=== PATIENT | female | born 1990 | race Caucasian/White ===

== ENCOUNTER 2019-03-13 19:21 | Inpatient (IN) | payer OTHER | END 2019-03-17 09:32 | disposition home or self-care (01) | LOC: Y6N 03-14 01:21 → YASAS 19:21 ==

== ENCOUNTER 2019-07-29 09:07 | Inpatient (IN) | payer OTHER ==
[2019-07-29 09:29] VITALS: BMI 24.7
--- NOTE | 2019-07-29 10:03 | HP ---
COWS - Scale Resting Pulse: 1= [place] 81-100 Sweatin= Chills/Flushing Restless Observation: 1= Difficult to Sit Still Pupil Size: 1= Pupils >than Normal Bone or Joint Aches: 2= Severe Diffuse Aches Runny Nose/ Eye Tearin= Runny Nose/Eyes GI Upset > 30mins: 1= Stomach Cramp Tremor Observation: 2= Slight Tremor Visible Yawning Observation: 1= 1-2x During Session Anxiety or Irritability: 1=Feels Anxious/Irritable Goose Flesh Skin: 3=Piloerection COWS Score: 16 CIWA Score - Admission Criteria OASAS Guidelines: Admission for Medically Managed Detox: Requires at least one of the followin. CIWA greater than 12 2. Seizures within the past 24 hours 3. Delirium tremens within the past 24 hours 4. Hallucinations within the past 24 hours 5. Acute intervention needed for co occurring medical disorder 6. Acute intervention needed for co occurring psychiatric disorder 7. Severe withdrawal that cannot be handled at a lower level of care (continued vomiting, continued diarrhea, abnormal vital signs) requiring intravenous medication and/or fluids 8. Admitting History and Physical - Admission Chief Complaint: WITHDRAWAL SYMPTOMS History of Present Illness: 28 Y.O. WOMAN WITH HISTORY OF HEROIN DEPENDENCE IS HERE SEEKING DETOX SERVICES. SHE WAS LAST HERE FOR DETOX ON 02/2019. SHE IS PRESCRIBED SUBOXONE AND MEDICATION WAS LAST REFILLED ON 07/19/19. SHE REPORTS SHE IS NOT TAKING THE MEDICATION; THERE IS NO BUPRENORPHINE IN HER U/A. SHE WAS AT [facility] YESTERDAY FOR POSSIBLE OVERDOSE (DID NOT PROVIDE DISCHARGE PAPERWORK) AND BROUGHT HERE BY A [employer]. 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: Alzheimer's, CVA, Dementia, Migraine, Multiple Sclerosis, Peripheral Neuropathy, Parkinson's, Seizure, Syncope, TIA, Vertigo, Other Cardiovascular: No: AFIB, Aneurysm, Aortic Insufficiency, Aortic Stenosis, CAD, CHF, Deep Vein Thrombosis, HTN, Hyperlipdemia, MA, Mitral Insufficiency, Mitral Stenosis, Murmur, Pulmonary Hypertension, Other Pulmonary: No: Asthma, Bronchitis, Cancer, COPD, O2 Dependent, Pneumonia, Previously Intubated, Pulmonary Embolus, Pulmonary Fibrosis, Sleep Apnea, Other Gastrointestinal: No: Ascites, Cancer, Constipation, Crohn's Disease, Diverticulitis, Diverticulosis, Esophageal Varices, Gastritis, GERD, GI Bleed, Hemorrhoids, Hiatal Hernia, Inflamatory Bowel Disease, Irritable Bowel Disease, Pancreatitis, Peptic Ulcer Disease, Ulcerative Colitis, Other Hepatobiliary: No: Cirrhosis, Cholelithiasis, Cholecystitis, Choledocholithiasis , Hepatitis A, Hepatitis B, Hepatitis C, Other Renal/: No: Renal Failure, Renal Inusuff, BPH, Cancer, Hematuria, Hemodialysis , Neurogenic Bladder, Renal Calculi, UTI, Other Reproductive: No: Ectopic , Endometriosis, Fibroids, PID, Polycystic Ovary Syndrome, Postmenopausal, Other ...LMP: 07/10/19 ...: No ...: 3 ...Para: 3 Heme/Onc: No: Anemia, B12 Deficiency, Bleeding Disorder, Cancer, Current Chemotherapy, Current Radiation Therapy, Hemochromatosis, Hypercoaguable State, Myeloproliferative Synd, Sickle Cell Disease, Sickle Cell Trait, Thrombocytopenia, Other Infectious Disease: No: AIDS, C-Diff, Herpes Zoster, HIV, MRSA, STD's, Tuberculosis, VREF, Other Psych: Yes: Depression Musculoskeletal: Yes: Chronic low back pain Rheumatology: No: Fibromyalgia, Gout, Lupus, Rheumatoid Arthritis, Sarcoidosis, Vasculitis, Other ENT: No: Allergic Rhinitis, Sinusitis, Other Endocrine: No: [place]'s Disease, Dona's Disease, Diabetes Insipidus, Diabetes Mellitus, Hyperparathyroidism, Hyperthyroidism, Hypothyroidism, Osteopenia, SIADH, Other Dermatology: No: Basal Cell, Cellulitis, Eczema, Melanoma, Psoriasis, Squamous Cell, Other Additional Past Medical History: DENIES - Past Surgical History Past Surgical History: Yes: - Advance Directives Advance Directives: No: Living Will, Health Care Proxy, DNR, Organ Donor, Tissue Donor, MOLST - Smoking History Smoking history: Current every day smoker Have you smoked in the past 12 months: Yes Aproximately how many cigarettes per day: 10 - Alcohol/Substance Use Hx Alcohol Use: No History of Substance Use: reports: Heroin Date of Last Use: 07/28/19 - Social History Usual Living Arrangement: Yes: Other (HOMELESS) Do you think of yourself as: Straight/Heterosexual ADL: Independent History of Recent Travel: No Admission [facility] Chief Complaint: WITHDRAWAL SYMPTOMS Allergies/Adverse Reactions: Allergies Allergy/AdvReac Type Severity Reaction Status Date / Time No Known Allergies Allergy Verified 07/29/19 09:17 History of Present Illness: 28 Y.O. WOMAN WITH HISTORY OF HEROIN DEPENDENCE IS HERE SEEKING DETOX SERVICES. SHE WAS LAST HERE FOR DETOX ON 02/2019. SHE IS PRESCRIBED SUBOXONE AND MEDICATION WAS LAST REFILLED ON 07/19/19. SHE REPORTS SHE IS NOT TAKING THE MEDICATION; THERE IS NO BUPRENORPHINE IN HER U/A. SHE WAS AT [facility] YESTERDAY FOR POSSIBLE OVERDOSE (DID NOT PROVIDE DISCHARGE PAPERWORK) AND BROUGHT HERE BY A [employer]. Exam Limitations: No Limitations - Ebola screening Have you traveled outside of the country in the last 21 days: No (N) Have you had contact with anyone from an Ebola affected area: No Do you have a fever: No - Review of Systems Constitutional: Chills, Loss of Appetite, Unintentional Wgt. Loss EENT: reports: Blurred Vision, Tearing, Nose Congestion Respiratory: reports: No Symptoms reported Cardiac: reports: Lightheadedness, Syncope GI: reports: Abdominal cramping : reports: No Symptoms Reported Musculoskeletal: reports: Back Pain, Joint Pain Integumentary: reports: No Symptoms Reported Neuro: reports: No Symptoms reported Endocrine: reports: No Symptoms Reported Hematology: reports: No Symptoms Reported Psychiatric: reports: Anxious, Depressed Other Systems: Reviewed and Negative Patient History - Patient Medical History Hx Anemia: No Hx Asthma: No Hx Chronic Obstructive Pulmonary Disease (COPD): No Hx Cancer: No Hx Cardiac Disorders: No Hx Congestive Heart Failure: No Hx Hypertension: No Hx Hypercholesterolemia: No Hx Pacemaker: No HX Cerebrovascular Accident: No Hx Seizures: No Hx Dementia: No Hx Diabetes: No Hx Gastrointestinal Disorders: No Hx Liver Disease: No Hx Genitourinary Disorders: No Hx Sexually Transmitted Disorders: No Hx Renal Disease (ESRD): No Hx Thyroid Disease: No Hx Human Immunodeficiency Virus (HIV): No Hx Hepatitis C: No Hx Depression: Yes Hx Suicide Attempt: No Hx Bipolar Disorder: No Hx Schizophrenia: No - Patient Surgical History Hx Section: Yes (2013) - PPD History Previous Implant?: Yes Documented Results: Negative w/proof Implanted On Prior [facility] Admission?: Yes Date: 03/16/19 Results: 0 PPD to be Administered?: No - Reproductive History Patient is a Female of Child Bearing Age (11 -55 yrs old): Yes Last Menstrual Period: 07/10/19 Patient : No - Smoking Cessation Smoking history: Current every day smoker Have you smoked in the past 12 months: Yes Aproximately how many cigarettes per day: 10 Hx Chewing Tobacco Use: No Initiated information on smoking cessation: Yes 'Breaking Loose' booklet given: 07/29/19 - Substance & Tx. History Hx Alcohol Use: No Hx Substance Use: Yes Substance Use Type: Heroin Hx Substance Use Treatment: Yes (02/2019: DETOX ) - Substances abused Heroin Substance route: Injection Frequency: Daily Amount used: 1 bundle Age of first use: 26 Date of last use: 07/28/19 Cocaine Substance route: Injection Frequency: Daily Amount used: $50 Date of last use: 07/28/19 Admission Physical Exam [facility] - Vital Signs Vital Signs: Vital Signs - 24 hr 07/29/19 09:21 Temperature 97.9 F Pulse Rate 83 Respiratory 16 Rate Blood Pressure 122/84 - Physical General Appearance: Yes: Tremorous, Anxious HEENTM: Yes: Hearing grossly Normal, Normal ENT Inspection Respiratory: Yes: Chest Non-Tender, Lungs Clear, Normal Breath Sounds, No Respiratory Distress, No Accessory Muscle Use Neck: Yes: Within Normal Limits Breast: Yes: Breast Exam Deferred Cardiology: Yes: Regular Rhythm, Regular Rate Abdominal: Yes: Normal Bowel Sounds, Non Tender Genitourinary: Yes: Other (NO COMPLAINTS REPORTED) Back: Yes: Normal Inspection Musculoskeletal: Yes: Back pain Extremities: Yes: Normal Inspection, Non-Tender Neurological: Yes: Alert, Normal Mood/Affect, Normal Response Integumentary: Yes: Normal Color, Dry, Warm, Track Nicole Lymphatic: Yes: Within Normal Limits - Diagnostic (1) Nicotine dependence Current Visit: Yes Status: Chronic (2) Opioid dependence with withdrawal Current Visit: Yes Status: Chronic Comment: IVDU (3) Cocaine abuse, uncomplicated Current Visit: Yes Status: Chronic Cleared for Admission [facility] - Detox or Rehab [facility] Level of Care: Medically Managed Detox Regimen/Protocol: Methadone Claeared for Rehab Admission: No Breathalyzer - Breathalyzer Breathalyzer: 0 Urine Drug Screen - Test Device Lot number: [id number] Expiration date: 03/23/21 - Control Is test valid?: Yes - Results Drug screen NEGATIVE: No Urine drug screen results: THC-Marijuana, MAR-Cocaine, FEN-Fentanyl, MOP-Opiates , BAR-Barbiturates Inpatient Rehab Admission - Rehab Decision to Admit Inpatient rehab admission?: No
[2019-07-29] MEDS ORDERED: MELATONIN 5 MG TABLETS PO PRN (10:17)
[2019-07-29] MEDS ORDERED: IBUPROFEN 400 MG TABLET (FP) PO PRN (10:17)
[2019-07-29] MEDS ORDERED: BISMUTH SUBSALICYLATE 524 MG/30 ML UD PO PRN (10:17)
[2019-07-29] MEDS ORDERED: MENTHOL/PHENOL 1 EACH UD MM PRN (10:17)
[2019-07-29] MEDS ORDERED: MAGNESIUM CITRATE 300 ML BOTTLE PO PRN (10:17)
[2019-07-29] MEDS ORDERED: METHADONE HCL 10 MG TABLET (FOR DETOX USE ONLY) PO ONE (10:17)
[2019-07-29] MEDS ORDERED: hydrOXYzine PAMOATE 25 MG CAPSULE (FP) PO PRN (10:17)
[2019-07-29] MEDS ORDERED: MAG HYDROX/AL HYDROX/SIMETH 30 ML UNIT-DOSE CUP PO PRN (10:17)
[2019-07-29] MEDS ORDERED: MAGNESIUM HYDROX 2400MG/30ML ORAL SUSPENSION 30 ML CUP PO PRN (10:17)
[2019-07-29] MEDS ORDERED: NALOXONE HCL 0.4 MG/ML VIAL IM PRN (10:17)
[2019-07-29] MEDS ORDERED: ACETAMINOPHEN 325 MG TABLET (FP) PO PRN ×2 (10:17)
[2019-07-29] MEDS ORDERED: NICOTINE POLACRILEX 2 MG GUM BUC PRN (10:17)
[2019-07-29] MEDS: METHOCARBAMOL 500 MG TABLET PO PRN (19:53)
[2019-07-29] MEDS: cloNIDine HCL 0.1 MG TABLET PO PRN (19:53)
[2019-07-29] MEDS: clonazePAM 0.5 MG TABLET PO PRN (19:53)
[2019-07-29] MEDS: THIAMINE HCL 100 MG TABLET (FP) PO SCH (23:39)
[2019-07-30] MEDS ORDERED: METHADONE HCL 10 MG TABLET (FOR DETOX USE ONLY) ONE (09:19)
[2019-07-30] MEDS ORDERED: METHADONE HCL 5 MG TABLET (FOR DETOX USE ONLY) ONE (09:20)
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
[2019-07-30] MEDS ORDERED: METHADONE (DETOX) 20 MG, METHADONE (DETOX) 5 MG PO ONE (10:00)
--- NOTE | 2019-07-30 10:05 | PN ---
BHS COWS - Scale Resting Pulse: 1= [place] 81-100 Sweatin=Flushed/Facial Moisture Restless Observation: 1= Difficult to Sit Still Pupil Size: 0= Normal to Room Light Bone or Joint Aches: 2= Severe Diffuse Aches Runny Nose/ Eye Tearin= Runny Nose/Eyes GI Upset > 30mins: 1= Stomach Cramp Tremor Observation of Outstretched Hands: 2= Slight Tremor Visible Yawning Observation: 1= 1-2x During Session Anxiety or Irritability: 1=Feels Anxious/Irritable Goose Flesh Skin: 0=Smooth Skin COWS Score: 13 BHS Progress Note (SOAP) Subjective: sweats shakes interrupted sleep body aches restless agitation anxiety Objective: 07/30/19 10:04 Vital Signs Temperature 97.9 F 07/30/19 09:15 Pulse Rate 88 07/30/19 09:15 Respiratory Rate 18 07/30/19 09:15 Blood Pressure 134/75 07/30/19 09:15 O2 Sat by Pulse Oximetry (%) pending labs aaox3 ambulating no acute distress Assessment: 07/30/19 10:14 withdrawals Plan: continue detox increase fluids pending labs
[2019-07-30] MEDS: NICOTINE 14 MG/24 HOURS TOPICAL PATCH TD SCH (10:06)
[2019-07-30] MEDS: PRENATAL VITAMINS W/ FOLIC ACID TABLET (FP) PO SCH (10:06)
[2019-07-30] MEDS: hydrOXYzine PAMOATE 50 MG CAPSULE (FP) PO PRN ×2 (10:42→16:54)
[2019-07-30 11:25] LABS: ALBUMIN 3.5 g/dl (3.4-5.0); BILIRUBIN,TOTAL 0.2 mg/dL (0.2-1); BLOOD UREA NITROGEN 7.3 mg/dL (7-18); CALCIUM 9.4 mg/dL (8.5-10.1); CREATININE 0.7 mg/dL (0.55-1.3); POTASSIUM 4.2 mmol/L (3.5-5.1); TOT PROT 7.6 g/dl (6.4-8.2)
[2019-07-30 11:31] LABS: HEMATOCRIT 37.1 % (32.4-45.2); HEMOGLOBIN 11.9 GM/dL (10.7-15.3); MCH 24.1 pg (25.7-33.7); MEAN CELL VOLUME 75.3 fl (80-96); MEAN PLT VOLUME 8.8 fl (7.5-11.1); PLATELET COUNT 314 K/MM3 (134-434); RBC 4.93 M/mm3 (3.60-5.2); WHITE BLOOD COUNT 7.7 K/mm3 (4.0-10.0)
[2019-07-30] MEDS: clonazePAM 0.5 MG TABLET PO PRN (21:51)
[2019-07-30] MEDS: THIAMINE HCL 100 MG TABLET (FP) PO SCH (21:51)
[2019-07-30] MEDS: cloNIDine HCL 0.1 MG TABLET PO PRN (21:51)
[2019-07-30] MEDS: METHOCARBAMOL 500 MG TABLET PO PRN (21:51)
[2019-07-30] MEDS: MELATONIN 5 MG TABLETS PO PRN (21:54)
[2019-07-31] MEDS: hydrOXYzine PAMOATE 50 MG CAPSULE (FP) PO PRN ×4 (04:55→22:14)
[2019-07-31] MEDS ORDERED: METHADONE HCL 10 MG TABLET (FOR DETOX USE ONLY) PO ONE (10:00)
[2019-07-31] MEDS: METHOCARBAMOL 500 MG TABLET PO PRN ×2 (10:09→22:12)
[2019-07-31] MEDS: NICOTINE 14 MG/24 HOURS TOPICAL PATCH TD SCH (10:09)
[2019-07-31] MEDS: PRENATAL VITAMINS W/ FOLIC ACID TABLET (FP) PO SCH (10:09)
--- NOTE | 2019-07-31 14:06 | PN ---
BHS COWS - Scale Resting Pulse: 1= [place] 81-100 Sweatin= Chills/Flushing Restless Observation: 1= Difficult to Sit Still Pupil Size: 0= Normal to Room Light Bone or Joint Aches: 2= Severe Diffuse Aches Runny Nose/ Eye Tearin= Nasal Congestion GI Upset > 30mins: 0= None Tremor Observation of Outstretched Hands: 1= Tremor [place], Not Seen Yawning Observation: 1= 1-2x During Session Anxiety or Irritability: 2=Irritable/Anxious Goose Flesh Skin: 0=Smooth Skin COWS Score: 10 BHS Progress Note (SOAP) Subjective: body aches sweats shakes irritable agitation Objective: 07/31/19 14:06 Vital Signs Temperature 97.7 F 07/31/19 09:01 Pulse Rate 87 07/31/19 09:01 Respiratory Rate 16 07/31/19 09:01 Blood Pressure 131/97 07/31/19 09:01 O2 Sat by Pulse Oximetry (%) Laboratory Tests 07/29/19 07/30/19 07/30/19 09:48 07:45 07:45 WBC 7.7 RBC 4.93 Hgb 11.9 Hct 37.1 MCV 75.3 L MCH 24.1 L MCHC 32.0 RDW 16.0 H Plt Count 314 MPV 8.8 Sodium 140 Potassium 4.2 Chloride 105 Carbon Dioxide 26 Anion Gap 8 BUN 7.3 Creatinine 0.7 Est GFR (CKD-EPI)AfAm 135.70 Est GFR (CKD-EPI)NonAf 117.08 Random Glucose 127 H Calcium 9.4 Total Bilirubin 0.2 AST 11 L ALT 17 Alkaline Phosphatase 85 Total Protein 7.6 Albumin 3.5 POC Urine HCG, Qual Negative RPR Titer 07/30/19 07:45 WBC RBC Hgb Hct MCV MCH MCHC RDW Plt Count MPV Sodium Potassium Chloride Carbon Dioxide Anion Gap BUN Creatinine Est GFR (CKD-EPI)AfAm Est GFR (CKD-EPI)NonAf Random Glucose Calcium Total Bilirubin AST ALT Alkaline Phosphatase Total Protein Albumin POC Urine HCG, Qual RPR Titer Nonreactive labs noted aaox3 ambulating no acute distress Assessment: 07/31/19 14:06 withdrawals Plan: continue detox increase fluids
[2019-07-31] MEDS: clonazePAM 0.5 MG TABLET PO PRN (16:54)
[2019-07-31] MEDS: THIAMINE HCL 100 MG TABLET (FP) PO SCH (22:12)
[2019-07-31] MEDS: cloNIDine HCL 0.1 MG TABLET PO PRN (22:12)
[2019-07-31] MEDS: MELATONIN 5 MG TABLETS PO PRN (22:13)
[2019-08-01] MEDS: traZODone HCL 50 MG TABLET (FP) PO PRN ×2 (00:51→21:28)
[2019-08-01] MEDS: clonazePAM 0.5 MG TABLET PO PRN (07:04)
[2019-08-01] MEDS: METHOCARBAMOL 500 MG TABLET PO PRN ×2 (07:04→21:29)
[2019-08-01] MEDS: hydrOXYzine PAMOATE 50 MG CAPSULE (FP) PO PRN ×2 (07:05→11:57)
[2019-08-01] MEDS ORDERED: METHADONE HCL 5 MG TABLET (FOR DETOX USE ONLY) ONE (09:12)
[2019-08-01] MEDS ORDERED: METHADONE HCL 10 MG TABLET (FOR DETOX USE ONLY) ONE (09:12)
[2019-08-01] MEDS ORDERED: METHADONE (DETOX) 10 MG, METHADONE (DETOX) 5 MG PO ONE (10:00)
[2019-08-01] MEDS: PRENATAL VITAMINS W/ FOLIC ACID TABLET (FP) PO SCH (10:43)
[2019-08-01] MEDS: NICOTINE 14 MG/24 HOURS TOPICAL PATCH TD SCH (10:44)
[2019-08-01] MEDS: diazePAM 5 MG TABLET PO PRN ×3 (10:45→21:28)
--- NOTE | 2019-08-01 14:28 | PN ---
BHS COWS - Scale Resting Pulse: 1= [place] 81-100 Sweatin= Chills/Flushing Restless Observation: 1= Difficult to Sit Still Pupil Size: 0= Normal to Room Light Bone or Joint Aches: 2= Severe Diffuse Aches Runny Nose/ Eye Tearin= None GI Upset > 30mins: 0= None Tremor Observation of Outstretched Hands: 1= Tremor [place], Not Seen Yawning Observation: 1= 1-2x During Session Anxiety or Irritability: 1=Feels Anxious/Irritable Goose Flesh Skin: 0=Smooth Skin COWS Score: 8 BHS Progress Note (SOAP) Subjective: sweats shakes body aches anxiety Objective: 08/01/19 14:27 Vital Signs Temperature 97.9 F 08/01/19 13:05 Pulse Rate 76 08/01/19 13:05 Respiratory Rate 18 08/01/19 13:05 Blood Pressure 132/81 08/01/19 13:05 O2 Sat by Pulse Oximetry (%) Laboratory Tests 07/29/19 07/30/19 07/30/19 09:48 07:45 07:45 WBC 7.7 RBC 4.93 Hgb 11.9 Hct 37.1 MCV 75.3 L MCH 24.1 L MCHC 32.0 RDW 16.0 H Plt Count 314 MPV 8.8 Sodium 140 Potassium 4.2 Chloride 105 Carbon Dioxide 26 Anion Gap 8 BUN 7.3 Creatinine 0.7 Est GFR (CKD-EPI)AfAm 135.70 Est GFR (CKD-EPI)NonAf 117.08 Random Glucose 127 H Calcium 9.4 Total Bilirubin 0.2 AST 11 L ALT 17 Alkaline Phosphatase 85 Total Protein 7.6 Albumin 3.5 POC Urine HCG, Qual Negative RPR Titer 07/30/19 07:45 WBC RBC Hgb Hct MCV MCH MCHC RDW Plt Count MPV Sodium Potassium Chloride Carbon Dioxide Anion Gap BUN Creatinine Est GFR (CKD-EPI)AfAm Est GFR (CKD-EPI)NonAf Random Glucose Calcium Total Bilirubin AST ALT Alkaline Phosphatase Total Protein Albumin POC Urine HCG, Qual RPR Titer Nonreactive labs noted aaox3 ambulating no acute distress Assessment: 08/01/19 14:27 withdrawals Plan: continue detox valium 10mg prn increase fluids
[2019-08-01] MEDS: MELATONIN 5 MG TABLETS PO PRN (21:27)
[2019-08-01] MEDS: THIAMINE HCL 100 MG TABLET (FP) PO SCH (21:27)
[2019-08-02] MEDS: METHOCARBAMOL 500 MG TABLET PO PRN ×3 (03:58→17:38)
[2019-08-02] MEDS: diazePAM 5 MG TABLET PO PRN ×4 (03:58→22:17)
[2019-08-02] MEDS: PRENATAL VITAMINS W/ FOLIC ACID TABLET (FP) PO SCH (09:45)
[2019-08-02] MEDS: hydrOXYzine PAMOATE 50 MG CAPSULE (FP) PO PRN ×2 (09:45→15:54)
[2019-08-02] MEDS ORDERED: METHADONE HCL 10 MG TABLET (FOR DETOX USE ONLY) PO ONE (10:00)
[2019-08-02] MEDS: NICOTINE 14 MG/24 HOURS TOPICAL PATCH TD SCH (10:19)
--- NOTE | 2019-08-02 13:29 | PN ---
BHS COWS - Scale Resting Pulse: 1= [place] 81-100 Sweatin= Chills/Flushing Restless Observation: 1= Difficult to Sit Still Pupil Size: 0= Normal to Room Light Bone or Joint Aches: 1= Mild Discomfort Runny Nose/ Eye Tearin= None GI Upset > 30mins: 0= None Tremor Observation of Outstretched Hands: 1= Tremor [place], Not Seen Yawning Observation: 0= None Anxiety or Irritability: 1=Feels Anxious/Irritable Goose Flesh Skin: 0=Smooth Skin COWS Score: 6 BHS Progress Note (SOAP) Subjective: feeling much better sweats little anxiety Objective: 08/02/19 13:28 Vital Signs Temperature 97.9 F 08/02/19 09:57 Pulse Rate 91 H 08/02/19 09:57 Respiratory Rate 16 08/02/19 09:57 Blood Pressure 129/82 08/02/19 09:57 O2 Sat by Pulse Oximetry (%) aaox3 ambulating no acute distress Assessment: 08/02/19 13:29 mild withdrawal Plan: continue detox d/c in am
[2019-08-02] MEDS: THIAMINE HCL 100 MG TABLET (FP) PO SCH (22:17)
[2019-08-02] MEDS: traZODone HCL 50 MG TABLET (FP) PO PRN (22:17)
[2019-08-02] MEDS: MELATONIN 5 MG TABLETS PO PRN (22:19)
[2019-08-03] MEDS: METHOCARBAMOL 500 MG TABLET PO PRN (05:58)
[2019-08-03] MEDS: diazePAM 5 MG TABLET PO PRN (05:59)
[2019-08-03] MEDS ORDERED: METHADONE HCL 5 MG TABLET (FOR DETOX USE ONLY) PO ONE (06:00)
[2019-08-03 09:41] VITALS: BP 122/52; PULSE 107; TEMP 98.1
--- NOTE | 2019-08-03 09:42 | DS ---
[facility] Detox Discharge Summary Admission Date: 07/29/19 Discharge Date: 08/03/19 - History Present History: Cannabis Dependence, Cocaine Dependence, Opioid Dependence - Physical Exam Results Vital Signs: Vital Signs Temperature 97.5 F L 08/03/19 06:00 Pulse Rate 87 08/03/19 06:00 Respiratory Rate 16 08/03/19 06:00 Blood Pressure 110/70 08/03/19 06:00 O2 Sat by Pulse Oximetry (%) Pertinent Admission Physical Exam Findings: pt arrived in withdrawals Vital Signs Temperature 97.5 F L 08/03/19 06:00 Pulse Rate 87 08/03/19 06:00 Respiratory Rate 16 08/03/19 06:00 Blood Pressure 110/70 08/03/19 06:00 O2 Sat by Pulse Oximetry (%) Laboratory Tests 07/29/19 07/30/19 07/30/19 09:48 07:45 07:45 WBC 7.7 RBC 4.93 Hgb 11.9 Hct 37.1 MCV 75.3 L MCH 24.1 L MCHC 32.0 RDW 16.0 H Plt Count 314 MPV 8.8 Sodium 140 Potassium 4.2 Chloride 105 Carbon Dioxide 26 Anion Gap 8 BUN 7.3 Creatinine 0.7 Est GFR (CKD-EPI)AfAm 135.70 Est GFR (CKD-EPI)NonAf 117.08 Random Glucose 127 H Calcium 9.4 Total Bilirubin 0.2 AST 11 L ALT 17 Alkaline Phosphatase 85 Total Protein 7.6 Albumin 3.5 POC Urine HCG, Qual Negative RPR Titer 07/30/19 07:45 WBC RBC Hgb Hct MCV MCH MCHC RDW Plt Count MPV Sodium Potassium Chloride Carbon Dioxide Anion Gap BUN Creatinine Est GFR (CKD-EPI)AfAm Est GFR (CKD-EPI)NonAf Random Glucose Calcium Total Bilirubin AST ALT Alkaline Phosphatase Total Protein Albumin POC Urine HCG, Qual RPR Titer Nonreactive pt is feeling much better aaox3 ambulating no acute distress no s/s of withdrawals - Treatment Hospital Course: Detox Protocol Followed, Detoxed Safely, Responded well, Discharged Condition Good, Rehab Referral Accepted Patient has Accepted a Rehab Referral to: pt referred to [facility] inpatient rehab - Medication Discharge Medications: Ambulatory Orders traZODone HCL [Trazodone HCl] 50 mg PO HS 07/29/19 - Diagnosis (1) Cocaine dependence Current Visit: Yes Status: Chronic Qualifiers: Substance use status: uncomplicated Qualified Code(s): F14.20 - Cocaine dependence, uncomplicated (2) Opioid dependence with withdrawal Current Visit: Yes Status: Chronic (3) Substance induced mood disorder Current Visit: Yes Status: Acute (4) Substance-induced sleep disorder Current Visit: Yes Status: Acute (5) Low back pain Current Visit: Yes Status: Chronic (6) Nicotine dependence Current Visit: Yes Status: Chronic Qualifiers: Nicotine product type: cigarettes Substance use status: uncomplicated Qualified Code(s): F17.210 - Nicotine dependence, cigarettes, uncomplicated (7) Cannabis abuse, uncomplicated Current Visit: Yes Status: Chronic - AMA Did Patient Leave Against Medical Advice: No
[2019-08-03] MEDS: NICOTINE 14 MG/24 HOURS TOPICAL PATCH TD SCH (10:29)
[2019-08-03] MEDS: PRENATAL VITAMINS W/ FOLIC ACID TABLET (FP) PO SCH (10:29)
[2019-08-03] MEDS: hydrOXYzine PAMOATE 50 MG CAPSULE (FP) PO PRN (10:30)
== END 2019-08-03 12:28 | disposition home or self-care (01) | DRG 773 ==
LOC: YASAS 09:07 → Y6N 10:26
PROVIDERS: ADMIT Allergy & Immunology; ATTEND Allergy & Immunology
PROC: HZ2ZZZZ Detoxification Services for Substance Abuse Treatment (ICD-10-PCS; principal; 2019-07-29)
DX: F11.23 Opioid dependence with withdrawal (principal); F14.20 Cocaine dependence, uncomplicated; F12.20 Cannabis dependence, uncomplicated; F17.210 Nicotine dependence, cigarettes, uncomplicated; F19.282 Other psychoactive substance dependence with psychoactive substance-induced sleep disorder; F19.24 Other psychoactive substance dependence with psychoactive substance-induced mood disorder; F32.9 Major depressive disorder, single episode, unspecified; M54.5 Low back pain
CPT/HCPCS: 36415; 80053; 81025; 85027; 86593; J0735

== ENCOUNTER 2021-03-04 14:46 | Inpatient (IN) | payer OTHER ==
[2021-03-04 16:12] VITALS: BMI 25.7
[2021-03-04] MEDS ORDERED: ACETAMINOPHEN 325 MG TABLET (FP) PO PRN ×2 (20:35)
[2021-03-04] MEDS ORDERED: MAG HYDROX/AL HYDROX/SIMETH 30 ML UNIT-DOSE CUP PO PRN (20:35)
[2021-03-04] MEDS ORDERED: BISMUTH SUBSALICYLATE 524 MG/30 ML UD PO PRN (20:35)
[2021-03-04] MEDS ORDERED: MAGNESIUM CITRATE 300 ML BOTTLE PO PRN (20:35)
[2021-03-04] MEDS ORDERED: ONDANSETRON *ODT* 4 MG TABLET SL PRN (20:35)
[2021-03-04] MEDS ORDERED: MENTHOL/PHENOL 1 EACH UD MM PRN (20:35)
[2021-03-04] MEDS ORDERED: NICOTINE POLACRILEX 2 MG GUM BUC PRN (20:35)
[2021-03-04] MEDS ORDERED: MAGNESIUM HYDROX 2400MG/30ML ORAL SUSPENSION 30 ML CUP PO PRN (20:35)
[2021-03-04] MEDS ORDERED: METHADONE HCL 10 MG TABLET (FOR DETOX USE ONLY) PO ONE ×2 (20:35→23:30)
[2021-03-04] MEDS: METHOCARBAMOL 500 MG TABLET PO PRN (23:34)
[2021-03-04] MEDS: THIAMINE HCL 100 MG TABLET (FP) PO SCH (23:34)
[2021-03-04] MEDS: MELATONIN 5 MG TABLETS PO SCH (23:34)
[2021-03-05] MEDS ORDERED: METHADONE HCL 5 MG TABLET (FOR DETOX USE ONLY) ONE (09:40)
[2021-03-05] MEDS ORDERED: METHADONE HCL 10 MG TABLET (FOR DETOX USE ONLY) ONE (09:40)
[2021-03-05] MEDS ORDERED: METHADONE (DETOX) 20 MG, METHADONE (DETOX) 5 MG PO ONE (10:00)
[2021-03-05] MEDS: PRENATAL VITAMINS W/ FOLIC ACID TABLET (FP) PO SCH (10:30)
[2021-03-05] MEDS: NICOTINE 14 MG/24 HOURS TOPICAL PATCH TD SCH (10:32)
[2021-03-05] MEDS: METHOCARBAMOL 500 MG TABLET PO PRN ×2 (10:32→18:13)
[2021-03-05] MEDS: IBUPROFEN 400 MG TABLET (FP) PO PRN (10:32)
[2021-03-05 10:37] LABS: HEMATOCRIT 40.8 % (32.4-45.2); HEMOGLOBIN 13.7 GM/dL (10.7-15.3); MCH 27.4 pg (25.7-33.7); MCHC 33.7 g/dl (32.0-36.0); MEAN CELL VOLUME 81.2 fl (80-96); MEAN PLT VOLUME 8.9 fl (7.5-11.1); PLATELET COUNT 231 K/MM3 (134-434); RBC 5.02 M/mm3 (3.60-5.2); RDW 12.9 % (11.6-15.6); WHITE BLOOD COUNT 7.1 K/mm3 (4.0-10.0)
[2021-03-05 10:43] LABS: CALCIUM 9.4 mg/dL (8.5-10.1)
[2021-03-05 10:44] LABS: ALBUMIN 3.7 g/dl (3.4-5.0); BLOOD UREA NITROGEN 10.1 mg/dL (7-18)
[2021-03-05 10:47] LABS: CREATININE 0.7 mg/dL (0.55-1.3)
[2021-03-05 10:48] LABS: BILIRUBIN,TOTAL 0.3 mg/dL (0.2-1); TOT PROT 7.9 g/dl (6.4-8.2)
[2021-03-05] MEDS: cloNIDine HCL 0.1 MG TABLET PO PRN (18:13)
[2021-03-05] MEDS ORDERED: hydrOXYzine PAMOATE 50 MG CAPSULE (FP) PO ONE (20:30)
[2021-03-05] MEDS: traZODone HCL 50 MG TABLET (FP) PO SCH ×2 (23:21→23:27)
[2021-03-05] MEDS: MELATONIN 5 MG TABLETS PO SCH (23:22)
[2021-03-05] MEDS: THIAMINE HCL 100 MG TABLET (FP) PO SCH (23:22)
[2021-03-06] MEDS: cloNIDine HCL 0.1 MG TABLET PO PRN (06:05)
[2021-03-06] MEDS: METHOCARBAMOL 500 MG TABLET PO PRN ×2 (06:05→17:44)
[2021-03-06] MEDS ORDERED: METHADONE HCL 10 MG TABLET (FOR DETOX USE ONLY) PO ONE (10:00)
[2021-03-06] MEDS: PRENATAL VITAMINS W/ FOLIC ACID TABLET (FP) PO SCH (10:08)
[2021-03-06] MEDS: NICOTINE 14 MG/24 HOURS TOPICAL PATCH TD SCH (10:09)
[2021-03-06] MEDS: hydrOXYzine PAMOATE 50 MG CAPSULE (FP) PO PRN (17:44)
[2021-03-06] MEDS: THIAMINE HCL 100 MG TABLET (FP) PO SCH (22:08)
[2021-03-06] MEDS: traZODone HCL 50 MG TABLET (FP) PO SCH (22:08)
[2021-03-06] MEDS: MELATONIN 5 MG TABLETS PO SCH (22:08)
[2021-03-07] MEDS: METHOCARBAMOL 500 MG TABLET PO PRN ×3 (05:34→17:38)
[2021-03-07] MEDS: hydrOXYzine PAMOATE 50 MG CAPSULE (FP) PO PRN ×3 (05:34→17:39)
[2021-03-07] MEDS ORDERED: METHADONE HCL 5 MG TABLET (FOR DETOX USE ONLY) ONE (09:35)
[2021-03-07] MEDS ORDERED: METHADONE HCL 10 MG TABLET (FOR DETOX USE ONLY) ONE (09:36)
[2021-03-07] MEDS: PRENATAL VITAMINS W/ FOLIC ACID TABLET (FP) PO SCH (09:40)
[2021-03-07] MEDS: NICOTINE 14 MG/24 HOURS TOPICAL PATCH TD SCH (09:43)
[2021-03-07] MEDS ORDERED: METHADONE (DETOX) 10 MG, METHADONE (DETOX) 5 MG PO ONE (10:00)
[2021-03-07 14:09] LABS: SARS-CoV-2 NAA Not Detected (Not Detected)
[2021-03-07] MEDS: IBUPROFEN 400 MG TABLET (FP) PO PRN (15:51)
[2021-03-07] MEDS: traZODone HCL 50 MG TABLET (FP) PO SCH (21:57)
[2021-03-07] MEDS: THIAMINE HCL 100 MG TABLET (FP) PO SCH (21:57)
[2021-03-08] MEDS: MELATONIN 5 MG TABLETS PO SCH ×2 (00:22→22:35)
[2021-03-08] MEDS: hydrOXYzine PAMOATE 50 MG CAPSULE (FP) PO PRN (03:37)
[2021-03-08] MEDS: METHOCARBAMOL 500 MG TABLET PO PRN ×4 (03:55→22:36)
[2021-03-08] MEDS: NICOTINE 14 MG/24 HOURS TOPICAL PATCH TD SCH (10:00)
[2021-03-08] MEDS ORDERED: METHADONE HCL 10 MG TABLET (FOR DETOX USE ONLY) PO ONE (10:00)
[2021-03-08] MEDS: PRENATAL VITAMINS W/ FOLIC ACID TABLET (FP) PO SCH (10:00)
[2021-03-08] MEDS: hydrOXYzine PAMOATE 50 MG CAPSULE (FP) PO SCH ×3 (10:01→22:35)
[2021-03-08] MEDS: THIAMINE HCL 100 MG TABLET (FP) PO SCH (22:34)
[2021-03-08] MEDS: traZODone HCL 50 MG TABLET (FP) PO SCH (22:35)
[2021-03-09] MEDS ORDERED: METHADONE HCL 5 MG TABLET (FOR DETOX USE ONLY) PO ONE (06:00)
[2021-03-09] MEDS: hydrOXYzine PAMOATE 50 MG CAPSULE (FP) PO SCH (06:08)
[2021-03-09 08:32] VITALS: BP 123/67; PULSE 88; TEMP 97.8
== END 2021-03-09 10:34 | disposition other institution (70) | DRG 773 ==
LOC: YASAS 14:46 → UNDOADMIN 16:58 → Y3N 16:58 → Y6N 20:37
PROVIDERS: ADMIT Allergy & Immunology; ATTEND Allergy & Immunology
PROC: HZ2ZZZZ Detoxification Services for Substance Abuse Treatment (ICD-10-PCS; principal; 2021-03-04)
DX: F11.23 Opioid dependence with withdrawal (principal); F14.20 Cocaine dependence, uncomplicated; F15.20 Other stimulant dependence, uncomplicated; F12.20 Cannabis dependence, uncomplicated; F17.210 Nicotine dependence, cigarettes, uncomplicated; F19.282 Other psychoactive substance dependence with psychoactive substance-induced sleep disorder; F41.9 Anxiety disorder, unspecified; F32.9 Major depressive disorder, single episode, unspecified; A53.0 Latent syphilis, unspecified as early or late; M54.5 Low back pain; G89.29 Other chronic pain; Z62.810 Personal history of physical and sexual abuse in childhood; Z91.410 Personal history of adult physical and sexual abuse; Z56.0 Unemployment, unspecified
CPT/HCPCS: 36415; 80053; 85027; 86593; 86780; 93005; 93010; C9803; J0735; U0003; U0005

== ENCOUNTER 2021-10-13 12:48 | Inpatient (IN) | payer OTHER ==
[2021-10-13] MEDS ORDERED: MAGNESIUM CITRATE 300 ML BOTTLE PO PRN (13:30)
[2021-10-13] MEDS ORDERED: ONDANSETRON *ODT* 4 MG TABLET SL PRN (13:30)
[2021-10-13] MEDS ORDERED: NICOTINE 10 MG CARTRIDGE (INHALER) IH PRN (13:30)
[2021-10-13] MEDS ORDERED: MAG HYDROX/AL HYDROX/SIMETH 30 ML UNIT-DOSE CUP PO PRN (13:30)
[2021-10-13] MEDS ORDERED: MAGNESIUM HYDROX 2400MG/30ML ORAL SUSPENSION 30 ML CUP PO PRN (13:30)
[2021-10-13] MEDS ORDERED: ACETAMINOPHEN 325 MG TABLET (FP) PO PRN ×2 (13:30)
[2021-10-13] MEDS ORDERED: BISMUTH SUBSALICYLATE 524 MG/30 ML PO PRN (13:30)
[2021-10-13] MEDS ORDERED: MENTHOL/PHENOL 1 EACH UD MM PRN (13:30)
[2021-10-13 14:16] VITALS: BMI 25.7
[2021-10-13] MEDS: hydrOXYzine PAMOATE 25 MG CAPSULE (FP) PO SCH ×3 (16:24→22:26)
[2021-10-13] MEDS: NICOTINE 21 MG/24 HOURS TOPICAL PATCH TD SCH (16:25)
[2021-10-13] MEDS: PRENATAL VITAMINS W/ FOLIC ACID TABLET (FP) PO SCH (16:25)
[2021-10-13 17:07] LABS: HEMATOCRIT 33.9 % (32.4-45.2); HEMOGLOBIN 11.2 GM/dL (10.7-15.3); MCH 27.1 pg (25.7-33.7); MEAN CELL VOLUME 82.1 fl (80-96); MEAN PLT VOLUME 9.1 fl (7.5-11.1); PLATELET COUNT 251 10^3/uL (134-434); RBC 4.13 M/mm3 (3.60-5.2); RDW 13.6 % (11.6-15.6); WHITE BLOOD COUNT 8.1 K/mm3 (4.0-10.0)
[2021-10-13 17:28] LABS: ALBUMIN 3.4 g/dl (3.4-5.0); BLOOD UREA NITROGEN 16.2 mg/dL (7-18); CALCIUM 8.9 mg/dL (8.5-10.1)
[2021-10-13 17:31] LABS: CREATININE 0.7 mg/dL (0.55-1.3)
[2021-10-13 17:33] LABS: BILIRUBIN,TOTAL 0.2 mg/dL (0.2-1); TOT PROT 7.2 g/dl (6.4-8.2)
[2021-10-13 18:20] LABS: HIV INTERPRETATION NEGATIVE (NEGATIVE)
[2021-10-13] MEDS ORDERED: MELATONIN 5 MG TABLETS PO SCH (22:00)
[2021-10-13] MEDS: THIAMINE HCL 100 MG TABLET (FP) PO SCH (22:26)
[2021-10-14] MEDS: hydrOXYzine PAMOATE 25 MG CAPSULE (FP) PO SCH ×5 (06:18→22:21)
[2021-10-14] MEDS ORDERED: methaDONE HCL 10 MG TABLET (FOR DETOX USE ONLY) PO ONE (09:04)
[2021-10-14] MEDS ORDERED: diazePAM 5 MG TABLET PO PRN (09:05)
[2021-10-14] MEDS ORDERED: ONDANSETRON *ODT* 4 MG TABLET SL ONE (09:20)
[2021-10-14] MEDS: NICOTINE 21 MG/24 HOURS TOPICAL PATCH TD SCH (10:34)
[2021-10-14] MEDS: PRENATAL VITAMINS W/ FOLIC ACID TABLET (FP) PO SCH (10:35)
[2021-10-14] MEDS: cloNIDine HCL 0.1 MG TABLET PO PRN (14:40)
[2021-10-14] MEDS: MELATONIN 5 MG TABLETS PO SCH (22:21)
[2021-10-14] MEDS: THIAMINE HCL 100 MG TABLET (FP) PO SCH (22:22)
[2021-10-15] MEDS: hydrOXYzine PAMOATE 25 MG CAPSULE (FP) PO SCH ×5 (05:42→22:39)
[2021-10-15] MEDS ORDERED: methaDONE HCL 10 MG TABLET (FOR DETOX USE ONLY) ONE (09:48)
[2021-10-15] MEDS: METHOCARBAMOL 500 MG TABLET PO PRN ×2 (10:33→22:39)
[2021-10-15] MEDS: PRENATAL VITAMINS W/ FOLIC ACID TABLET (FP) PO SCH (10:33)
[2021-10-15] MEDS: NICOTINE 21 MG/24 HOURS TOPICAL PATCH TD SCH (10:35)
[2021-10-15] MEDS: MELATONIN 5 MG TABLETS PO SCH (22:39)
[2021-10-15] MEDS: THIAMINE HCL 100 MG TABLET (FP) PO SCH (22:39)
[2021-10-16] MEDS: hydrOXYzine PAMOATE 25 MG CAPSULE (FP) PO SCH ×5 (06:03→23:03)
[2021-10-16] MEDS: METHOCARBAMOL 500 MG TABLET PO PRN ×3 (06:03→23:04)
[2021-10-16] MEDS ORDERED: methaDONE HCL 10 MG TABLET (FOR DETOX USE ONLY) PO ONE (10:00)
[2021-10-16] MEDS: PRENATAL VITAMINS W/ FOLIC ACID TABLET (FP) PO SCH (10:54)
[2021-10-16] MEDS: NICOTINE 21 MG/24 HOURS TOPICAL PATCH TD SCH (10:55)
[2021-10-16] MEDS: cloNIDine HCL 0.1 MG TABLET PO PRN (14:56)
[2021-10-16] MEDS: IBUPROFEN 400 MG TABLET (FP) PO PRN (18:46)
[2021-10-17] MEDS: MELATONIN 5 MG TABLETS PO SCH ×2 (02:24→22:46)
[2021-10-17] MEDS: THIAMINE HCL 100 MG TABLET (FP) PO SCH ×2 (02:25→22:46)
[2021-10-17] MEDS: hydrOXYzine PAMOATE 25 MG CAPSULE (FP) PO SCH ×5 (04:59→22:46)
[2021-10-17] MEDS: METHOCARBAMOL 500 MG TABLET PO PRN ×2 (07:01→22:46)
[2021-10-17] MEDS ORDERED: methaDONE HCL 10 MG TABLET (FOR DETOX USE ONLY) ONE (09:40)
[2021-10-17] MEDS: PRENATAL VITAMINS W/ FOLIC ACID TABLET (FP) PO SCH (09:45)
[2021-10-17] MEDS: NICOTINE 21 MG/24 HOURS TOPICAL PATCH TD SCH (09:46)
[2021-10-17] MEDS: IBUPROFEN 400 MG TABLET (FP) PO PRN (10:58)
[2021-10-17 23:23] VITALS: TEMP 98
[2021-10-18] MEDS: METHOCARBAMOL 500 MG TABLET PO PRN (06:57)
[2021-10-18] MEDS: hydrOXYzine PAMOATE 25 MG CAPSULE (FP) PO SCH ×2 (06:57→11:00)
[2021-10-18 08:31] VITALS: BP 108/67; PULSE 76
[2021-10-18] MEDS ORDERED: methaDONE HCL 10 MG TABLET (FOR DETOX USE ONLY) PO ONE (10:00)
[2021-10-18] MEDS: PRENATAL VITAMINS W/ FOLIC ACID TABLET (FP) PO SCH (11:00)
[2021-10-18] MEDS: NICOTINE 21 MG/24 HOURS TOPICAL PATCH TD SCH (11:00)
[2021-10-18] MEDS: IBUPROFEN 400 MG TABLET (FP) PO PRN (12:39)
== END 2021-10-18 14:08 | disposition left against medical advice (07) | DRG 770 ==
LOC: YASAS 12:48 → Y6N 14:34
PROVIDERS: ADMIT Allergy & Immunology; ATTEND Allergy & Immunology
PROC: HZ2ZZZZ Detoxification Services for Substance Abuse Treatment (ICD-10-PCS; principal; 2021-10-13)
DX: F11.23 Opioid dependence with withdrawal (principal); F10.230 Alcohol dependence with withdrawal, uncomplicated; F13.230 Sedative, hypnotic or anxiolytic dependence with withdrawal, uncomplicated; F14.20 Cocaine dependence, uncomplicated; F12.20 Cannabis dependence, uncomplicated; F17.210 Nicotine dependence, cigarettes, uncomplicated; F32.A Depression, unspecified; F19.24 Other psychoactive substance dependence with psychoactive substance-induced mood disorder; F19.282 Other psychoactive substance dependence with psychoactive substance-induced sleep disorder; R73.09 Other abnormal glucose; U07.1 COVID-19; M54.59 Other low back pain; G89.29 Other chronic pain; Z86.19 Personal history of other infectious and parasitic diseases; Z56.0 Unemployment, unspecified
CPT/HCPCS: 36415; 80053; 82962; 85027; 86593; 86780; 87389; 93005; 93010; C9803; J0735; Q0162; U0003; U0005

== ENCOUNTER 2022-04-13 14:24 | Inpatient (IN) | payer OTHER ==
[2022-04-13 18:05] VITALS: BMI 22.3
[2022-04-13] MEDS ORDERED: MAGNESIUM HYDROX 2400MG/30ML ORAL SUSPENSION 30 ML CUP PO PRN (19:05)
[2022-04-13] MEDS ORDERED: MAG HYDROX/AL HYDROX/SIMETH 30 ML UNIT-DOSE CUP PO PRN (19:05)
[2022-04-13] MEDS ORDERED: ACETAMINOPHEN 325 MG TABLET (FP) PO PRN (19:05)
[2022-04-13] MEDS ORDERED: NALOXONE HCL 0.4 MG/ML VIAL IM PRN (19:05)
[2022-04-13] MEDS ORDERED: P-EPHED 60MG/TRIPROLIDI 2.5MG TABLET PO PRN (19:05)
[2022-04-13] MEDS ORDERED: MAGNESIUM CITRATE 300 ML BOTTLE PO PRN (19:05)
[2022-04-13] MEDS ORDERED: LOPERAMIDE HCL 2 MG CAPSULE PO PRN (19:05)
[2022-04-13] MEDS ORDERED: guaiFENesin 200 MG/10 ML 10 ML UNIT-DOSE CUPS PO PRN (19:05)
[2022-04-13] MEDS: MELATONIN 5 MG TABLETS PO SCH (22:51)
[2022-04-13] MEDS: THIAMINE HCL 100 MG TABLET (FP) PO SCH (22:52)
[2022-04-13] MEDS: hydrOXYzine PAMOATE 25 MG CAPSULE (FP) PO SCH (22:52)
[2022-04-14] MEDS: hydrOXYzine PAMOATE 25 MG CAPSULE (FP) PO SCH ×5 (06:44→21:13)
[2022-04-14] MEDS ORDERED: methaDONE HCL 10 MG TABLET PO ONE (09:38)
[2022-04-14] MEDS ORDERED: methaDONE 40 MG, methaDONE 30 MG PO ONE (10:05)
[2022-04-14] MEDS ORDERED: methaDONE HCL 40 MG DISPERSABLE TABLET ONE (10:20)
[2022-04-14] MEDS ORDERED: methaDONE HCL 10 MG TABLET ONE (10:20)
[2022-04-14] MEDS: NICOTINE 7 MG/24 HOURS TOPICAL PATCH TD SCH (10:21)
[2022-04-14] MEDS: PRENATAL VITAMINS W/ FOLIC ACID TABLET (FP) PO SCH (10:21)
[2022-04-14 11:48] LABS: HEMATOCRIT 44.3 % (32.4-45.2); HEMOGLOBIN 14.3 GM/dL (10.7-15.3); MCH 26.6 pg (25.7-33.7); MCHC 32.4 g/dl (32.0-36.0); MEAN CELL VOLUME 82.1 fl (80-96); MEAN PLT VOLUME 8.8 fl (7.5-11.1); PLATELET COUNT 223 10^3/uL (134-434); RBC 5.39 M/mm3 (3.60-5.2); RDW 13.2 % (11.6-15.6)
[2022-04-14 11:52] LABS: CALCIUM 9.8 mg/dL (8.5-10.1)
[2022-04-14 11:53] LABS: ALBUMIN 3.6 g/dl (3.4-5.0); BLOOD UREA NITROGEN 9.3 mg/dL (7-18)
[2022-04-14 11:56] LABS: CREATININE 0.7 mg/dL (0.55-1.3)
[2022-04-14 11:58] LABS: BILIRUBIN,TOTAL 0.3 mg/dL (0.2-1); TOT PROT 7.9 g/dl (6.4-8.2)
[2022-04-14 13:18] LABS: HIV INTERPRETATION NEGATIVE (NEGATIVE)
[2022-04-14 13:46] LABS: SYPHILIS W/ RPR CONF REACTIVE (NONREACTIVE)
[2022-04-14] MEDS: MELATONIN 5 MG TABLETS PO SCH (21:13)
[2022-04-14] MEDS: THIAMINE HCL 100 MG TABLET (FP) PO SCH (21:14)
[2022-04-15] MEDS ORDERED: methaDONE HCL 10 MG TABLET ONE (05:08)
[2022-04-15] MEDS ORDERED: methaDONE HCL 40 MG DISPERSABLE TABLET ONE (05:09)
[2022-04-15] MEDS: methaDONE 40 MG, methaDONE 30 MG PO SCH (05:42)
[2022-04-15] MEDS: hydrOXYzine PAMOATE 25 MG CAPSULE (FP) PO SCH ×5 (05:44→21:39)
[2022-04-15] MEDS ORDERED: methaDONE HCL 10 MG TABLET PO SCH (06:00)
[2022-04-15] MEDS: PRENATAL VITAMINS W/ FOLIC ACID TABLET (FP) PO SCH (09:48)
[2022-04-15] MEDS: NICOTINE 7 MG/24 HOURS TOPICAL PATCH TD SCH (09:48)
[2022-04-15] MEDS: THIAMINE HCL 100 MG TABLET (FP) PO SCH (21:39)
[2022-04-15] MEDS: MELATONIN 5 MG TABLETS PO SCH (21:39)
[2022-04-16] MEDS ORDERED: methaDONE HCL 40 MG DISPERSABLE TABLET ONE (04:29)
[2022-04-16] MEDS ORDERED: methaDONE HCL 10 MG TABLET ONE (04:29)
[2022-04-16] MEDS: methaDONE 40 MG, methaDONE 30 MG PO SCH (06:00)
[2022-04-16] MEDS: hydrOXYzine PAMOATE 25 MG CAPSULE (FP) PO SCH ×5 (06:44→21:41)
[2022-04-16] MEDS: NICOTINE 7 MG/24 HOURS TOPICAL PATCH TD SCH (10:09)
[2022-04-16] MEDS: PRENATAL VITAMINS W/ FOLIC ACID TABLET (FP) PO SCH (10:09)
[2022-04-16] MEDS: FLUoxetine HCL 10 MG CAPSULE PO SCH (13:49)
[2022-04-16] MEDS: THIAMINE HCL 100 MG TABLET (FP) PO SCH (21:39)
[2022-04-16] MEDS: QUEtiapine FUMARATE 100 MG TABLET (FP) PO SCH (21:41)
[2022-04-17] MEDS ORDERED: methaDONE HCL 10 MG TABLET ONE (04:28)
[2022-04-17] MEDS ORDERED: methaDONE HCL 40 MG DISPERSABLE TABLET ONE (04:29)
[2022-04-17] MEDS: methaDONE 40 MG, methaDONE 30 MG PO SCH (06:23)
[2022-04-17] MEDS: hydrOXYzine PAMOATE 25 MG CAPSULE (FP) PO SCH ×5 (06:25→22:28)
[2022-04-17] MEDS: FLUoxetine HCL 10 MG CAPSULE PO SCH (10:40)
[2022-04-17] MEDS: NICOTINE 7 MG/24 HOURS TOPICAL PATCH TD SCH (10:40)
[2022-04-17] MEDS: PRENATAL VITAMINS W/ FOLIC ACID TABLET (FP) PO SCH (10:40)
[2022-04-17] MEDS: NICOTINE 10 MG CARTRIDGE (INHALER) IH PRN (10:41)
[2022-04-17 18:14] LABS: EPI CELLS 32 /uL (0-25.1); HYALINE CASTS 1 /uL (0-3.1); URINE APPEARANCE CLEAR; URINE BACTERIA 591 /uL (0-1359); URINE BILIRUBIN NEGATIVE (NEGATIVE); URINE COLOR YELLOW; URINE GLUCOSE (UA) NEGATIVE (NEGATIVE); URINE KETONE NEGATIVE (NEGATIVE); URINE LEUK ESTERASE NEGATIVE (NEGATIVE); URINE NITRITE NEGATIVE (NEGATIVE); URINE PROTEIN 1+ (NEGATIVE); URINE RBC 1 /uL (0-23.9); URINE UROBILINOGEN 0.2 mg/dL (0.2-1.0); URINE WBC 6 /uL (0-25.8)
[2022-04-17] MEDS: QUEtiapine FUMARATE 100 MG TABLET (FP) PO SCH (22:27)
[2022-04-17] MEDS: THIAMINE HCL 100 MG TABLET (FP) PO SCH (22:28)
[2022-04-18] MEDS ORDERED: methaDONE HCL 40 MG DISPERSABLE TABLET ONE (04:14)
[2022-04-18] MEDS ORDERED: methaDONE HCL 10 MG TABLET ONE (04:14)
[2022-04-18] MEDS: hydrOXYzine PAMOATE 25 MG CAPSULE (FP) PO SCH ×5 (06:48→22:09)
[2022-04-18] MEDS: methaDONE 40 MG, methaDONE 30 MG PO SCH (06:48)
[2022-04-18] MEDS: PRENATAL VITAMINS W/ FOLIC ACID TABLET (FP) PO SCH (10:37)
[2022-04-18] MEDS: NICOTINE 7 MG/24 HOURS TOPICAL PATCH TD SCH (10:37)
[2022-04-18] MEDS: FLUoxetine HCL 10 MG CAPSULE PO SCH (10:37)
[2022-04-18] MEDS: NICOTINE 10 MG CARTRIDGE (INHALER) IH PRN (10:39)
[2022-04-18] MEDS: THIAMINE HCL 100 MG TABLET (FP) PO SCH (22:09)
[2022-04-18] MEDS: QUEtiapine FUMARATE 100 MG TABLET (FP) PO SCH (22:09)
[2022-04-19] MEDS ORDERED: methaDONE HCL 40 MG DISPERSABLE TABLET ONE (05:20)
[2022-04-19] MEDS ORDERED: methaDONE HCL 10 MG TABLET ONE (05:20)
[2022-04-19] MEDS: methaDONE 40 MG, methaDONE 30 MG PO SCH (05:41)
[2022-04-19] MEDS: hydrOXYzine PAMOATE 25 MG CAPSULE (FP) PO SCH (05:41)
[2022-04-19] MEDS: PRENATAL VITAMINS W/ FOLIC ACID TABLET (FP) PO SCH (10:15)
[2022-04-19] MEDS: NICOTINE 7 MG/24 HOURS TOPICAL PATCH TD SCH (10:15)
[2022-04-19] MEDS: hydrOXYzine PAMOATE 25 MG CAPSULE (FP) PO PRN ×4 (10:16→21:46)
[2022-04-19] MEDS: FLUoxetine HCL 10 MG CAPSULE PO SCH (10:16)
[2022-04-19] MEDS: NICOTINE 10 MG CARTRIDGE (INHALER) IH PRN ×2 (10:16→14:32)
[2022-04-19] MEDS: QUEtiapine FUMARATE 100 MG TABLET (FP) PO SCH (21:46)
[2022-04-19] MEDS: THIAMINE HCL 100 MG TABLET (FP) PO SCH (21:46)
[2022-04-20] MEDS ORDERED: methaDONE HCL 40 MG DISPERSABLE TABLET ONE (03:12)
[2022-04-20] MEDS ORDERED: methaDONE HCL 10 MG TABLET ONE (03:12)
[2022-04-20] MEDS: methaDONE 40 MG, methaDONE 30 MG PO SCH (06:08)
[2022-04-20] MEDS: PRENATAL VITAMINS W/ FOLIC ACID TABLET (FP) PO SCH (10:18)
[2022-04-20] MEDS: NICOTINE 7 MG/24 HOURS TOPICAL PATCH TD SCH (10:18)
[2022-04-20] MEDS: FLUoxetine HCL 10 MG CAPSULE PO SCH (10:18)
[2022-04-20] MEDS: hydrOXYzine PAMOATE 25 MG CAPSULE (FP) PO PRN ×2 (10:19→21:40)
[2022-04-20] MEDS: NICOTINE 10 MG CARTRIDGE (INHALER) IH PRN ×2 (10:26→21:44)
[2022-04-20] MEDS: QUEtiapine FUMARATE 100 MG TABLET (FP) PO SCH (21:40)
[2022-04-20] MEDS: THIAMINE HCL 100 MG TABLET (FP) PO SCH (21:40)
[2022-04-21] MEDS ORDERED: methaDONE HCL 10 MG TABLET ONE (03:14)
[2022-04-21] MEDS ORDERED: methaDONE HCL 40 MG DISPERSABLE TABLET ONE (03:15)
[2022-04-21] MEDS: methaDONE 40 MG, methaDONE 30 MG PO SCH (05:55)
[2022-04-21] MEDS: NICOTINE 10 MG CARTRIDGE (INHALER) IH PRN ×4 (06:30→21:46)
[2022-04-21] MEDS: PRENATAL VITAMINS W/ FOLIC ACID TABLET (FP) PO SCH (10:17)
[2022-04-21] MEDS: NICOTINE 7 MG/24 HOURS TOPICAL PATCH TD SCH (10:17)
[2022-04-21] MEDS: hydrOXYzine PAMOATE 25 MG CAPSULE (FP) PO PRN ×2 (10:18→21:47)
[2022-04-21] MEDS: FLUoxetine HCL 10 MG CAPSULE PO SCH (10:18)
[2022-04-21] MEDS: busPIRone HCL 5 MG TABLET PO SCH ×2 (13:51→21:47)
[2022-04-21] MEDS: IBUPROFEN 400 MG TABLET (FP) PO PRN (13:54)
[2022-04-21] MEDS: QUEtiapine FUMARATE 100 MG TABLET (FP) PO SCH (21:47)
[2022-04-21] MEDS: THIAMINE HCL 100 MG TABLET (FP) PO SCH (21:47)
[2022-04-22] MEDS ORDERED: methaDONE HCL 40 MG DISPERSABLE TABLET ONE (04:13)
[2022-04-22] MEDS ORDERED: methaDONE HCL 10 MG TABLET ONE (04:13)
[2022-04-22] MEDS: busPIRone HCL 5 MG TABLET PO SCH ×3 (06:06→21:50)
[2022-04-22] MEDS: methaDONE 40 MG, methaDONE 30 MG PO SCH (06:06)
[2022-04-22] MEDS: NICOTINE 14 MG/24 HOURS TOPICAL PATCH TD SCH (10:24)
[2022-04-22] MEDS: PRENATAL VITAMINS W/ FOLIC ACID TABLET (FP) PO SCH (10:24)
[2022-04-22] MEDS: FLUoxetine HCL 10 MG CAPSULE PO SCH (10:25)
[2022-04-22] MEDS: hydrOXYzine PAMOATE 25 MG CAPSULE (FP) PO PRN ×3 (10:25→21:50)
[2022-04-22] MEDS: NICOTINE 10 MG CARTRIDGE (INHALER) IH PRN (10:26)
[2022-04-22] MEDS: VITAMINS A AND D TOPICAL OINTMENT 60 GM TUBE TP SCH (14:06)
[2022-04-22] MEDS: QUEtiapine FUMARATE 100 MG TABLET (FP) PO SCH (21:50)
[2022-04-22] MEDS: THIAMINE HCL 100 MG TABLET (FP) PO SCH (21:50)
[2022-04-23] MEDS ORDERED: methaDONE HCL 40 MG DISPERSABLE TABLET ONE (03:48)
[2022-04-23] MEDS ORDERED: methaDONE HCL 10 MG TABLET ONE (03:48)
[2022-04-23] MEDS: busPIRone HCL 5 MG TABLET PO SCH ×3 (06:23→21:57)
[2022-04-23] MEDS: methaDONE 40 MG, methaDONE 30 MG PO SCH (06:23)
[2022-04-23] MEDS: FLUoxetine HCL 10 MG CAPSULE PO SCH (10:19)
[2022-04-23] MEDS: PRENATAL VITAMINS W/ FOLIC ACID TABLET (FP) PO SCH (10:20)
[2022-04-23] MEDS: NICOTINE 14 MG/24 HOURS TOPICAL PATCH TD SCH (10:20)
[2022-04-23] MEDS: VITAMINS A AND D TOPICAL OINTMENT 60 GM TUBE TP SCH (10:20)
[2022-04-23] MEDS: hydrOXYzine PAMOATE 25 MG CAPSULE (FP) PO PRN ×3 (10:21→21:58)
[2022-04-23] MEDS: IBUPROFEN 400 MG TABLET (FP) PO PRN (14:19)
[2022-04-23] MEDS: NICOTINE 10 MG CARTRIDGE (INHALER) IH PRN ×2 (16:49→22:00)
[2022-04-23] MEDS: THIAMINE HCL 100 MG TABLET (FP) PO SCH (21:57)
[2022-04-23] MEDS: QUEtiapine FUMARATE 100 MG TABLET (FP) PO SCH (21:58)
[2022-04-24] MEDS ORDERED: methaDONE HCL 10 MG TABLET ONE (04:07)
[2022-04-24] MEDS ORDERED: methaDONE HCL 40 MG DISPERSABLE TABLET ONE (04:08)
[2022-04-24] MEDS: busPIRone HCL 5 MG TABLET PO SCH ×3 (06:26→21:57)
[2022-04-24] MEDS: methaDONE 40 MG, methaDONE 30 MG PO SCH (06:26)
[2022-04-24] MEDS: PRENATAL VITAMINS W/ FOLIC ACID TABLET (FP) PO SCH (10:06)
[2022-04-24] MEDS: NICOTINE 14 MG/24 HOURS TOPICAL PATCH TD SCH (10:07)
[2022-04-24] MEDS: FLUoxetine HCL 10 MG CAPSULE PO SCH (10:07)
[2022-04-24] MEDS: VITAMINS A AND D TOPICAL OINTMENT 60 GM TUBE TP SCH (10:08)
[2022-04-24] MEDS: hydrOXYzine PAMOATE 25 MG CAPSULE (FP) PO PRN ×3 (10:08→21:57)
[2022-04-24] MEDS: NICOTINE 10 MG CARTRIDGE (INHALER) IH PRN (13:32)
[2022-04-24] MEDS: QUEtiapine FUMARATE 100 MG TABLET (FP) PO SCH (21:57)
[2022-04-24] MEDS: THIAMINE HCL 100 MG TABLET (FP) PO SCH (21:57)
[2022-04-25] MEDS: busPIRone HCL 5 MG TABLET PO SCH ×3 (06:34→21:42)
[2022-04-25] MEDS: NICOTINE 10 MG CARTRIDGE (INHALER) IH PRN (06:34)
[2022-04-25] MEDS ORDERED: methaDONE HCL 10 MG TABLET ONE (06:35)
[2022-04-25] MEDS ORDERED: methaDONE HCL 40 MG DISPERSABLE TABLET ONE (06:36)
[2022-04-25] MEDS: methaDONE 40 MG, methaDONE 30 MG PO SCH (06:36)
[2022-04-25] MEDS: PRENATAL VITAMINS W/ FOLIC ACID TABLET (FP) PO SCH (10:36)
[2022-04-25] MEDS: NICOTINE 14 MG/24 HOURS TOPICAL PATCH TD SCH (10:37)
[2022-04-25] MEDS: hydrOXYzine PAMOATE 25 MG CAPSULE (FP) PO PRN ×2 (10:38→21:42)
[2022-04-25] MEDS: FLUoxetine HCL 10 MG CAPSULE PO SCH (10:38)
[2022-04-25] MEDS: VITAMINS A AND D TOPICAL OINTMENT 60 GM TUBE TP SCH (10:39)
[2022-04-25] MEDS: THIAMINE HCL 100 MG TABLET (FP) PO SCH (21:42)
[2022-04-25] MEDS: QUEtiapine FUMARATE 100 MG TABLET (FP) PO SCH (21:42)
[2022-04-26] MEDS ORDERED: methaDONE HCL 40 MG DISPERSABLE TABLET ONE (04:19)
[2022-04-26] MEDS ORDERED: methaDONE HCL 10 MG TABLET ONE (04:19)
[2022-04-26] MEDS: methaDONE 40 MG, methaDONE 30 MG PO SCH (06:08)
[2022-04-26] MEDS: busPIRone HCL 5 MG TABLET PO SCH ×3 (06:09→22:01)
[2022-04-26] MEDS: NICOTINE 10 MG CARTRIDGE (INHALER) IH PRN ×3 (06:10→22:02)
[2022-04-26] MEDS: PRENATAL VITAMINS W/ FOLIC ACID TABLET (FP) PO SCH (10:20)
[2022-04-26] MEDS: NICOTINE 14 MG/24 HOURS TOPICAL PATCH TD SCH (10:20)
[2022-04-26] MEDS: FLUoxetine HCL 10 MG CAPSULE PO SCH (10:20)
[2022-04-26] MEDS: hydrOXYzine PAMOATE 25 MG CAPSULE (FP) PO PRN ×2 (10:20→22:01)
[2022-04-26] MEDS: VITAMINS A AND D TOPICAL OINTMENT 60 GM TUBE TP SCH (10:21)
[2022-04-26] MEDS: QUEtiapine FUMARATE 100 MG TABLET (FP) PO SCH (22:01)
[2022-04-26] MEDS: THIAMINE HCL 100 MG TABLET (FP) PO SCH (22:01)
[2022-04-27] MEDS ORDERED: methaDONE HCL 40 MG DISPERSABLE TABLET ONE (03:52)
[2022-04-27] MEDS ORDERED: methaDONE HCL 10 MG TABLET ONE (03:52)
[2022-04-27] MEDS: busPIRone HCL 5 MG TABLET PO SCH ×3 (06:14→21:29)
[2022-04-27] MEDS: methaDONE 40 MG, methaDONE 30 MG PO SCH (06:14)
[2022-04-27] MEDS: hydrOXYzine PAMOATE 25 MG CAPSULE (FP) PO PRN ×3 (10:52→21:29)
[2022-04-27] MEDS: FLUoxetine HCL 10 MG CAPSULE PO SCH (10:52)
[2022-04-27] MEDS: NICOTINE 14 MG/24 HOURS TOPICAL PATCH TD SCH (10:52)
[2022-04-27] MEDS: PRENATAL VITAMINS W/ FOLIC ACID TABLET (FP) PO SCH (10:52)
[2022-04-27] MEDS: VITAMINS A AND D TOPICAL OINTMENT 60 GM TUBE TP SCH (10:54)
[2022-04-27] MEDS: QUEtiapine FUMARATE 100 MG TABLET (FP) PO SCH (21:29)
[2022-04-27] MEDS: THIAMINE HCL 100 MG TABLET (FP) PO SCH (21:29)
[2022-04-27] MEDS: NICOTINE 10 MG CARTRIDGE (INHALER) IH PRN (21:30)
[2022-04-28] MEDS ORDERED: methaDONE HCL 10 MG TABLET ONE (04:07)
[2022-04-28] MEDS ORDERED: methaDONE HCL 40 MG DISPERSABLE TABLET ONE (04:07)
[2022-04-28] MEDS: methaDONE 40 MG, methaDONE 30 MG PO SCH (06:16)
[2022-04-28] MEDS: busPIRone HCL 5 MG TABLET PO SCH ×3 (06:17→21:34)
[2022-04-28] MEDS: FLUoxetine HCL 10 MG CAPSULE PO SCH (09:55)
[2022-04-28] MEDS: PRENATAL VITAMINS W/ FOLIC ACID TABLET (FP) PO SCH (09:55)
[2022-04-28] MEDS: hydrOXYzine PAMOATE 25 MG CAPSULE (FP) PO PRN ×3 (09:55→21:34)
[2022-04-28] MEDS: NICOTINE 14 MG/24 HOURS TOPICAL PATCH TD SCH (09:55)
[2022-04-28] MEDS: VITAMINS A AND D TOPICAL OINTMENT 60 GM TUBE TP SCH ×2 (10:01→10:07)
[2022-04-28] MEDS: NICOTINE 10 MG CARTRIDGE (INHALER) IH PRN ×2 (14:34→21:36)
[2022-04-28] MEDS: QUEtiapine FUMARATE 100 MG TABLET (FP) PO SCH (21:34)
[2022-04-28] MEDS: THIAMINE HCL 100 MG TABLET (FP) PO SCH (21:34)
[2022-04-29] MEDS ORDERED: methaDONE HCL 40 MG DISPERSABLE TABLET ONE (04:03)
[2022-04-29] MEDS ORDERED: methaDONE HCL 10 MG TABLET ONE (04:03)
[2022-04-29] MEDS: busPIRone HCL 5 MG TABLET PO SCH ×3 (06:16→21:29)
[2022-04-29] MEDS: methaDONE 40 MG, methaDONE 30 MG PO SCH (06:16)
[2022-04-29] MEDS: NICOTINE 10 MG CARTRIDGE (INHALER) IH PRN ×3 (06:18→21:30)
[2022-04-29] MEDS: hydrOXYzine PAMOATE 25 MG CAPSULE (FP) PO PRN ×3 (09:45→21:29)
[2022-04-29] MEDS: FLUoxetine HCL 10 MG CAPSULE PO SCH (09:45)
[2022-04-29] MEDS: NICOTINE 14 MG/24 HOURS TOPICAL PATCH TD SCH (09:47)
[2022-04-29] MEDS: VITAMINS A AND D TOPICAL OINTMENT 60 GM TUBE TP SCH (09:49)
[2022-04-29] MEDS: PRENATAL VITAMINS W/ FOLIC ACID TABLET (FP) PO SCH (09:49)
[2022-04-29] MEDS: THIAMINE HCL 100 MG TABLET (FP) PO SCH (21:29)
[2022-04-29] MEDS: QUEtiapine FUMARATE 100 MG TABLET (FP) PO SCH (21:29)
[2022-04-30] MEDS ORDERED: methaDONE HCL 10 MG TABLET ONE (04:04)
[2022-04-30] MEDS ORDERED: methaDONE HCL 40 MG DISPERSABLE TABLET ONE (04:05)
[2022-04-30] MEDS: busPIRone HCL 5 MG TABLET PO SCH ×3 (05:58→21:23)
[2022-04-30] MEDS: methaDONE 40 MG, methaDONE 30 MG PO SCH (05:59)
[2022-04-30] MEDS: NICOTINE 14 MG/24 HOURS TOPICAL PATCH TD SCH (10:14)
[2022-04-30] MEDS: PRENATAL VITAMINS W/ FOLIC ACID TABLET (FP) PO SCH (10:14)
[2022-04-30] MEDS: FLUoxetine HCL 10 MG CAPSULE PO SCH (10:15)
[2022-04-30] MEDS: VITAMINS A AND D TOPICAL OINTMENT 60 GM TUBE TP SCH (10:15)
[2022-04-30] MEDS: hydrOXYzine PAMOATE 25 MG CAPSULE (FP) PO PRN ×3 (10:15→21:23)
[2022-04-30] MEDS: NICOTINE 10 MG CARTRIDGE (INHALER) IH PRN ×2 (10:16→21:31)
[2022-04-30] MEDS: THIAMINE HCL 100 MG TABLET (FP) PO SCH (21:23)
[2022-04-30] MEDS: QUEtiapine FUMARATE 100 MG TABLET (FP) PO SCH (21:23)
[2022-05-01] MEDS ORDERED: methaDONE HCL 40 MG DISPERSABLE TABLET ONE (03:57)
[2022-05-01] MEDS ORDERED: methaDONE HCL 10 MG TABLET ONE (03:57)
[2022-05-01] MEDS: methaDONE 40 MG, methaDONE 30 MG PO SCH (06:24)
[2022-05-01] MEDS: busPIRone HCL 5 MG TABLET PO SCH ×3 (06:24→21:27)
[2022-05-01] MEDS: PRENATAL VITAMINS W/ FOLIC ACID TABLET (FP) PO SCH (10:06)
[2022-05-01] MEDS: NICOTINE 14 MG/24 HOURS TOPICAL PATCH TD SCH (10:06)
[2022-05-01] MEDS: FLUoxetine HCL 10 MG CAPSULE PO SCH (10:07)
[2022-05-01] MEDS: VITAMINS A AND D TOPICAL OINTMENT 60 GM TUBE TP SCH (10:08)
[2022-05-01] MEDS: hydrOXYzine PAMOATE 25 MG CAPSULE (FP) PO PRN ×3 (10:09→21:26)
[2022-05-01] MEDS: NICOTINE 10 MG CARTRIDGE (INHALER) IH PRN ×2 (16:41→21:28)
[2022-05-01] MEDS: THIAMINE HCL 100 MG TABLET (FP) PO SCH (21:25)
[2022-05-01] MEDS: QUEtiapine FUMARATE 100 MG TABLET (FP) PO SCH (21:25)
[2022-05-02] MEDS ORDERED: methaDONE HCL 40 MG DISPERSABLE TABLET ONE (03:22)
[2022-05-02] MEDS ORDERED: methaDONE HCL 10 MG TABLET ONE (03:22)
[2022-05-02] MEDS: NICOTINE 10 MG CARTRIDGE (INHALER) IH PRN ×4 (05:56→21:57)
[2022-05-02] MEDS: methaDONE 40 MG, methaDONE 30 MG PO SCH (05:56)
[2022-05-02] MEDS: busPIRone HCL 5 MG TABLET PO SCH ×3 (05:56→21:47)
[2022-05-02] MEDS: FLUoxetine HCL 10 MG CAPSULE PO SCH (10:17)
[2022-05-02] MEDS: PRENATAL VITAMINS W/ FOLIC ACID TABLET (FP) PO SCH (10:17)
[2022-05-02] MEDS: NICOTINE 14 MG/24 HOURS TOPICAL PATCH TD SCH (10:17)
[2022-05-02] MEDS: VITAMINS A AND D TOPICAL OINTMENT 60 GM TUBE TP SCH (10:18)
[2022-05-02] MEDS ORDERED: hydrOXYzine PAMOATE 25 MG CAPSULE (FP) PO ONE (11:11)
[2022-05-02] MEDS: hydrOXYzine PAMOATE 50 MG CAPSULE (FP) PO PRN ×2 (11:13→21:47)
[2022-05-02] MEDS: THIAMINE HCL 100 MG TABLET (FP) PO SCH (21:46)
[2022-05-02] MEDS: QUEtiapine FUMARATE 100 MG TABLET (FP) PO SCH (21:47)
[2022-05-03] MEDS ORDERED: methaDONE HCL 40 MG DISPERSABLE TABLET ONE (03:22)
[2022-05-03] MEDS ORDERED: methaDONE HCL 10 MG TABLET ONE (03:22)
[2022-05-03] MEDS: methaDONE 40 MG, methaDONE 30 MG PO SCH (06:46)
[2022-05-03] MEDS: busPIRone HCL 5 MG TABLET PO SCH ×3 (06:46→21:36)
[2022-05-03] MEDS: NICOTINE 10 MG CARTRIDGE (INHALER) IH PRN ×2 (06:58→21:38)
[2022-05-03] MEDS: PRENATAL VITAMINS W/ FOLIC ACID TABLET (FP) PO SCH (10:12)
[2022-05-03] MEDS: hydrOXYzine PAMOATE 50 MG CAPSULE (FP) PO PRN ×3 (10:13→21:36)
[2022-05-03] MEDS: NICOTINE 14 MG/24 HOURS TOPICAL PATCH TD SCH (10:13)
[2022-05-03] MEDS ORDERED: hydrOXYzine PAMOATE 25 MG CAPSULE (FP) PO ONE (10:13)
[2022-05-03] MEDS: FLUoxetine HCL 10 MG CAPSULE PO SCH (10:14)
[2022-05-03] MEDS: VITAMINS A AND D TOPICAL OINTMENT 60 GM TUBE TP SCH (10:15)
[2022-05-03] MEDS: IBUPROFEN 400 MG TABLET (FP) PO PRN (18:03)
[2022-05-03] MEDS: QUEtiapine FUMARATE 100 MG TABLET (FP) PO SCH (21:36)
[2022-05-03] MEDS: THIAMINE HCL 100 MG TABLET (FP) PO SCH (21:36)
[2022-05-04] MEDS ORDERED: methaDONE HCL 40 MG DISPERSABLE TABLET ONE (03:28)
[2022-05-04] MEDS ORDERED: methaDONE HCL 10 MG TABLET ONE (03:28)
[2022-05-04] MEDS: busPIRone HCL 5 MG TABLET PO SCH ×3 (06:33→21:31)
[2022-05-04] MEDS: methaDONE 40 MG, methaDONE 30 MG PO SCH (06:33)
[2022-05-04] MEDS: NICOTINE 10 MG CARTRIDGE (INHALER) IH PRN ×3 (06:35→21:33)
[2022-05-04] MEDS: FLUoxetine HCL 10 MG CAPSULE PO SCH (10:10)
[2022-05-04] MEDS: PRENATAL VITAMINS W/ FOLIC ACID TABLET (FP) PO SCH (10:10)
[2022-05-04] MEDS: NICOTINE 14 MG/24 HOURS TOPICAL PATCH TD SCH (10:10)
[2022-05-04] MEDS: hydrOXYzine PAMOATE 50 MG CAPSULE (FP) PO PRN ×3 (10:11→21:32)
[2022-05-04] MEDS: VITAMINS A AND D TOPICAL OINTMENT 60 GM TUBE TP SCH (10:11)
[2022-05-04] MEDS: QUEtiapine FUMARATE 100 MG TABLET (FP) PO SCH (21:31)
[2022-05-04] MEDS: THIAMINE HCL 100 MG TABLET (FP) PO SCH (21:31)
[2022-05-05] MEDS ORDERED: methaDONE HCL 10 MG TABLET ONE (04:22)
[2022-05-05] MEDS ORDERED: methaDONE HCL 40 MG DISPERSABLE TABLET ONE (04:22)
[2022-05-05] MEDS: NICOTINE 10 MG CARTRIDGE (INHALER) IH PRN ×2 (06:10→10:12)
[2022-05-05] MEDS: busPIRone HCL 5 MG TABLET PO SCH ×3 (06:11→21:27)
[2022-05-05] MEDS: methaDONE 40 MG, methaDONE 30 MG PO SCH (06:11)
[2022-05-05] MEDS: PRENATAL VITAMINS W/ FOLIC ACID TABLET (FP) PO SCH (10:09)
[2022-05-05] MEDS: NICOTINE 14 MG/24 HOURS TOPICAL PATCH TD SCH (10:09)
[2022-05-05] MEDS: FLUoxetine HCL 10 MG CAPSULE PO SCH (10:10)
[2022-05-05] MEDS: hydrOXYzine PAMOATE 50 MG CAPSULE (FP) PO PRN ×3 (10:12→21:27)
[2022-05-05] MEDS: VITAMINS A AND D TOPICAL OINTMENT 60 GM TUBE TP SCH (10:12)
[2022-05-05] MEDS: THIAMINE HCL 100 MG TABLET (FP) PO SCH (21:27)
[2022-05-05] MEDS: QUEtiapine FUMARATE 100 MG TABLET (FP) PO SCH (21:27)
[2022-05-06] MEDS ORDERED: methaDONE HCL 10 MG TABLET ONE (05:59)
[2022-05-06] MEDS ORDERED: methaDONE HCL 40 MG DISPERSABLE TABLET ONE (06:00)
[2022-05-06] MEDS: busPIRone HCL 5 MG TABLET PO SCH ×3 (06:11→21:40)
[2022-05-06] MEDS: methaDONE 40 MG, methaDONE 30 MG PO SCH (06:11)
[2022-05-06] MEDS: NICOTINE 14 MG/24 HOURS TOPICAL PATCH TD SCH (10:25)
[2022-05-06] MEDS: hydrOXYzine PAMOATE 50 MG CAPSULE (FP) PO PRN ×3 (10:25→21:40)
[2022-05-06] MEDS: PRENATAL VITAMINS W/ FOLIC ACID TABLET (FP) PO SCH (10:25)
[2022-05-06] MEDS: FLUoxetine HCL 10 MG CAPSULE PO SCH (10:25)
[2022-05-06] MEDS: IBUPROFEN 400 MG TABLET (FP) PO PRN (10:26)
[2022-05-06] MEDS: VITAMINS A AND D TOPICAL OINTMENT 60 GM TUBE TP SCH (10:26)
[2022-05-06] MEDS: NICOTINE 10 MG CARTRIDGE (INHALER) IH PRN ×2 (10:31→21:41)
[2022-05-06] MEDS: QUEtiapine FUMARATE 100 MG TABLET (FP) PO SCH (21:40)
[2022-05-06] MEDS: THIAMINE HCL 100 MG TABLET (FP) PO SCH (21:40)
[2022-05-07] MEDS ORDERED: methaDONE HCL 10 MG TABLET ONE (03:37)
[2022-05-07] MEDS ORDERED: methaDONE HCL 40 MG DISPERSABLE TABLET ONE (03:37)
[2022-05-07] MEDS: busPIRone HCL 5 MG TABLET PO SCH ×3 (06:28→21:23)
[2022-05-07] MEDS: methaDONE 40 MG, methaDONE 30 MG PO SCH (06:28)
[2022-05-07] MEDS: NICOTINE 10 MG CARTRIDGE (INHALER) IH PRN ×2 (06:30→21:28)
[2022-05-07] MEDS: FLUoxetine HCL 10 MG CAPSULE PO SCH (10:27)
[2022-05-07] MEDS: VITAMINS A AND D TOPICAL OINTMENT 60 GM TUBE TP SCH (10:27)
[2022-05-07] MEDS: PRENATAL VITAMINS W/ FOLIC ACID TABLET (FP) PO SCH (10:27)
[2022-05-07] MEDS: hydrOXYzine PAMOATE 50 MG CAPSULE (FP) PO PRN ×3 (10:27→21:24)
[2022-05-07] MEDS: NICOTINE 14 MG/24 HOURS TOPICAL PATCH TD SCH (10:27)
[2022-05-07] MEDS: QUEtiapine FUMARATE 100 MG TABLET (FP) PO SCH (21:23)
[2022-05-07] MEDS: THIAMINE HCL 100 MG TABLET (FP) PO SCH (21:23)
[2022-05-08] MEDS ORDERED: methaDONE HCL 40 MG DISPERSABLE TABLET ONE (04:03)
[2022-05-08] MEDS ORDERED: methaDONE HCL 10 MG TABLET ONE (04:03)
[2022-05-08] MEDS: methaDONE 40 MG, methaDONE 30 MG PO SCH (06:30)
[2022-05-08] MEDS: busPIRone HCL 5 MG TABLET PO SCH ×3 (06:32→21:38)
[2022-05-08] MEDS: NICOTINE 10 MG CARTRIDGE (INHALER) IH PRN ×4 (06:48→21:39)
[2022-05-08] MEDS: PRENATAL VITAMINS W/ FOLIC ACID TABLET (FP) PO SCH (10:38)
[2022-05-08] MEDS: FLUoxetine HCL 10 MG CAPSULE PO SCH (10:39)
[2022-05-08] MEDS: NICOTINE 14 MG/24 HOURS TOPICAL PATCH TD SCH (10:39)
[2022-05-08] MEDS: hydrOXYzine PAMOATE 50 MG CAPSULE (FP) PO PRN ×3 (10:40→21:38)
[2022-05-08] MEDS: VITAMINS A AND D TOPICAL OINTMENT 60 GM TUBE TP SCH (10:40)
[2022-05-08] MEDS: QUEtiapine FUMARATE 100 MG TABLET (FP) PO SCH (21:38)
[2022-05-08] MEDS: THIAMINE HCL 100 MG TABLET (FP) PO SCH (21:38)
[2022-05-09] MEDS ORDERED: methaDONE HCL 40 MG DISPERSABLE TABLET ONE (04:07)
[2022-05-09] MEDS ORDERED: methaDONE HCL 10 MG TABLET ONE (04:07)
[2022-05-09] MEDS: methaDONE 40 MG, methaDONE 30 MG PO SCH (06:43)
[2022-05-09] MEDS: busPIRone HCL 5 MG TABLET PO SCH ×3 (06:43→21:47)
[2022-05-09] MEDS: NICOTINE 10 MG CARTRIDGE (INHALER) IH PRN ×3 (07:27→21:47)
[2022-05-09] MEDS: FLUoxetine HCL 10 MG CAPSULE PO SCH (10:34)
[2022-05-09] MEDS: PRENATAL VITAMINS W/ FOLIC ACID TABLET (FP) PO SCH (10:34)
[2022-05-09] MEDS: NICOTINE 14 MG/24 HOURS TOPICAL PATCH TD SCH (10:35)
[2022-05-09] MEDS: VITAMINS A AND D TOPICAL OINTMENT 60 GM TUBE TP SCH (10:37)
[2022-05-09] MEDS: hydrOXYzine PAMOATE 50 MG CAPSULE (FP) PO PRN ×3 (10:38→21:47)
[2022-05-09] MEDS: QUEtiapine FUMARATE 100 MG TABLET (FP) PO SCH (21:47)
[2022-05-09] MEDS: THIAMINE HCL 100 MG TABLET (FP) PO SCH (21:47)
[2022-05-10] MEDS ORDERED: methaDONE HCL 40 MG DISPERSABLE TABLET ONE (03:54)
[2022-05-10] MEDS ORDERED: methaDONE HCL 10 MG TABLET ONE (03:54)
[2022-05-10] MEDS: methaDONE 40 MG, methaDONE 30 MG PO SCH (06:28)
[2022-05-10] MEDS: busPIRone HCL 5 MG TABLET PO SCH ×3 (06:28→21:39)
[2022-05-10] MEDS: hydrOXYzine PAMOATE 50 MG CAPSULE (FP) PO PRN ×4 (06:30→21:42)
[2022-05-10] MEDS: NICOTINE 10 MG CARTRIDGE (INHALER) IH PRN ×3 (06:30→21:44)
[2022-05-10] MEDS ORDERED: hydrOXYzine PAMOATE 25 MG CAPSULE (FP) PO ONE (08:57)
[2022-05-10] MEDS: NICOTINE 14 MG/24 HOURS TOPICAL PATCH TD SCH (10:20)
[2022-05-10] MEDS: PRENATAL VITAMINS W/ FOLIC ACID TABLET (FP) PO SCH (10:20)
[2022-05-10] MEDS: VITAMINS A AND D TOPICAL OINTMENT 60 GM TUBE TP SCH (10:21)
[2022-05-10] MEDS: FLUoxetine HCL 10 MG CAPSULE PO SCH (10:21)
[2022-05-10] MEDS: QUEtiapine FUMARATE 100 MG TABLET (FP) PO SCH (21:39)
[2022-05-10] MEDS: THIAMINE HCL 100 MG TABLET (FP) PO SCH (21:39)
[2022-05-11] MEDS ORDERED: methaDONE HCL 10 MG TABLET ONE (03:55)
[2022-05-11] MEDS ORDERED: methaDONE HCL 40 MG DISPERSABLE TABLET ONE (03:55)
[2022-05-11] MEDS: busPIRone HCL 5 MG TABLET PO SCH (06:13)
[2022-05-11] MEDS: methaDONE 40 MG, methaDONE 30 MG PO SCH (06:13)
[2022-05-11] MEDS: NICOTINE 10 MG CARTRIDGE (INHALER) IH PRN (06:15)
[2022-05-11 07:19] VITALS: BP 109/68; PULSE 63; TEMP 96.9
[2022-05-11] MEDS: PRENATAL VITAMINS W/ FOLIC ACID TABLET (FP) PO SCH (09:54)
[2022-05-11] MEDS: FLUoxetine HCL 10 MG CAPSULE PO SCH (09:54)
[2022-05-11] MEDS: hydrOXYzine PAMOATE 50 MG CAPSULE (FP) PO PRN (09:55)
[2022-05-11] MEDS: VITAMINS A AND D TOPICAL OINTMENT 60 GM TUBE TP SCH (09:56)
[2022-05-11] MEDS: NICOTINE 14 MG/24 HOURS TOPICAL PATCH TD SCH (11:12)
== END 2022-05-11 10:05 | disposition home or self-care (01) | DRG 772 ==
LOC: YASAS 14:24 → Y5N 22:28
PROVIDERS: ADMIT Allergy & Immunology; ATTEND Psychiatry & Neurology Pain Medicine
PROC: HZ42ZZZ Group Counseling for Substance Abuse Treatment, Cognitive-Behavioral (ICD-10-PCS; principal; 2022-04-13)
DX: F11.20 Opioid dependence, uncomplicated (principal); F14.20 Cocaine dependence, uncomplicated; F15.20 Other stimulant dependence, uncomplicated; F12.20 Cannabis dependence, uncomplicated; F17.210 Nicotine dependence, cigarettes, uncomplicated; F19.282 Other psychoactive substance dependence with psychoactive substance-induced sleep disorder; F19.24 Other psychoactive substance dependence with psychoactive substance-induced mood disorder; F41.9 Anxiety disorder, unspecified; F32.A Depression, unspecified; B18.2 Chronic viral hepatitis C; M54.50 Low back pain, unspecified; G89.29 Other chronic pain; R76.8 Other specified abnormal immunological findings in serum; Z62.810 Personal history of physical and sexual abuse in childhood; Z86.19 Personal history of other infectious and parasitic diseases; Z91.410 Personal history of adult physical and sexual abuse; Z28.310 Unvaccinated for COVID-19
CPT/HCPCS: 36415; 80053; 81003; 82947; 82962; 85027; 86593; 86780; 86803; 87389; 87522; 87811; C9803-CS; U0003; U0005